=== PATIENT | female | born 1980 | race Caucasian/White ===

== ENCOUNTER 2016-10-15 05:44 | Emergency (ER) | payer MEDICAID ==
[~2016-10-15] VITALS: Ht 170.2 cm; Wt 59.0 kg
[~2016-10-15 05:44] MED LIST: AMOXIL875 MG PO; BACTRIM DS 8001 TA1 PO; BACTRIM DS 8001 TAB PO; BENADRYL25 M3 PO; CIPRO 500MG TA500 MG PO; CIPROFLOXACIN500 MG PO; CLINDAMYCIN HC150 MG PO; FLAGYL 500MG.500 MG PO; IBU600 MG PO; KEFLEX 500MG.500 MG PO; LORTAB 5/500 501 TAB PO; MOTRIN 400MG.400 MG PO; NOMEDS; NOMEDS XX; NORCO 325 MG-51 TAB PO; PERCOCET 10 MG1 EACH PO; PERCOCET 5/3251 EACH PO; PHENERGAN 25MG.25 M1 PO; TORADOL10 M2 PO; VOLTAREN75 MG PO
[2016-10-15] MEDS ORDERED: IBUPROFEN 600M600 MG PO (06:03)
[2016-10-15 06:13] LABS: URINE BILIRUBIN - DIPSTICK NEGATIVE (NEG); URINE BLOOD NEGATIVE (NEG)
[2016-10-15 06:17] LABS: URINE SQUAMOUS CELLS OCC #/hpf (0-5)
[2016-10-15 06:21] LABS: LYMPH # 1.4 K/mm3 (0.7-4.5); LYMPH % 11.5 % (10-50.0)
[2016-10-15 06:22] LABS: HEMOGLOBIN 8.2 g/dL (12.2-16.2)
--- NOTE | 2016-10-15 07:33 | Emergency Room Report ---
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 Y Clinical Suspician of Infection? Y Mental Status: 1 - Regular (Normal Baseline) Sepsis Risk:Possible Sepsis Risk Have you (or family members/close friends) recently traveled outside the [place]? N If Yes, where/when: Have you had exposure to infectious disease within the past month? N TB? Other? Specify: Source patient, RN notes reviewed, family, old records Exam Limitations no limitations Comment pt with progressive lt flank pain with assoc fever and dec po intake - pt had been at but eloped on the 10/12/16 - she admits to iv drug use - Cardiac Chest Pain Chest pain indicative of cardiac No Timing/Duration this evening Severity moderate ALLERGIES Coded Allergies: ciprofloxacin (From [facility]) (I-[facility] 10/15/16) erythromycin base ([facility] 10/15/[facility]) Home Medications Reported Medications IBUPROFEN MICRONIZED (IBUPROFEN 600MG) 600 MG PO Q8HP PRN FEVER History Medical History General CAD? No Angina: No UT: No Hypertension? No Hyperlipidemia? No CHF? No DVT? No PE? No COPD? No Asthma? No Anemia? Yes GERD? No Gastric ulcers? No GI Bleed? No Hernia? No Thyroid Problems? Yes Hypothyroidism? No CVA? No Seizures? No Diabetes? No Insulin Dependent: No Insulin Pump: No Home FSBS? No Renal Insuffiency? No End Stage Renal Disease? No UTI? No Stones? No BPH? No GB Disease: No Nephritic Syndrome? No Asplenia? No Hepatitis? No Sickle Cell Disease? No Arthritis? No Migraines? No Cataracts? No Glaucoma? No MRSA? No HIV? No TB? No Anxiety? No Depression? No Cancer? No More? 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 Respiratory denies cough, denies shortness of breath, denies wheezing Cardiovascular denies chest pain, denies palpitations, denies syncope Gastrointestinal see HPI, abdominal pain, nausea, denies vomiting Genitourinary denies: dysuria, frequency, hesitancy, hematuria. Musculoskeletal see HPI, back pain, denies joint pain, denies joint swelling, denies neck pain Skin denies rash Psychiatric/Neurological denies headache, denies seizure Physical Exam Vital Signs Vital Signs Date Time Temp Pulse Resp B/P Pulse O2 O2 Flow FiO2 Ox Delivery Rate 10/15 0753 98.5 74 18 107/67 98 03/ 0748 74 18 107/67 94 / 0553 99.2 94 22 119/68 98 - WBC >12,000 or <4,000 or 10% bands? 2 or more SIRS Criteria Met? B/P:107/67 MAP:85 Creatinine >2.0? UA output<0.5ml/kg/hr for 2 hrs? Platelet count >100,000? Lactate >2.0mmol/1? INR >1.2 or PTT > than 60 sec? Evidence of Organ Dysfunction? Provider documented clinical suspician of infection? Y Sepsis Criteria Count: 2 Sepsis Risk: Possible Sepsis Risk General Appearance no apparent distress Eye Exam - bilateral eye PERRL, bilateral eye EOMI Ear, Nose, Throat normal ENT inspection Neck supple Respiratory Status No: respiratory distress. Lung Sounds left: decreased breath sounds. 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 No Results/Orders Laboratory Tests 10/15/16 0605: Sodium 134 L, Potassium 3.1 L, Chloride 99, Carbon Dioxide 28, BUN 9, Creatinine 0.5 L, Estimated Creat Clear 145, Estimated GFR (MDRD) 140, Glucose 98, Calcium 7.6 L, Total Bilirubin 0.3, AST 23, ALT 23, Alkaline Phosphatase 87 , Total Protein 6.5, Albumin 2.4 L, Globulin 4.1 H, Albumin/Globulin Ratio 0.6 L, Amylase 17 L, Lipase 43 L, WBC 11.9 H, RBC 3.61 L, Hgb 8.2 L, Hct 26.3 L, MCV 72.6 L, RDW 13.9, Plt Count 425 H, MPV 5.4 L, Gran % 84.2 H, Gran # 10.0 H, Lymphocytes % 11.5, Monocytes % 3.9, Eosinophils % 0.4, Basophils % 0.1 , Lymphocytes # 1.4, Monocytes # 0.5, Eosinophils # 0.1, Basophils # 0.0, PUBS MCHC 31.3 L, MCH 22.8 L, Urine Color YELLOW, Urine Appearance CLEAR, Urine pH 6.5, Ur Specific Bowman 1.020, Urine Protein TRACE H, Urine Ketones NEGATIVE, Urine Blood NEGATIVE, Urine Nitrate NEGATIVE, Urine Bilirubin NEGATIVE, Urine Urobilinogen >=8.0 H, Ur Leukocyte Esterase TRACE H, Urine WBC 3-5, Ur Squamous Epith Cells OCC, Amorphous Sediment TRACE, Urine Mucus 1+, Urine Glucose NEGATIVE 10/15/16 0550: Opiates Screen POSITIVE H, Urine Methadone Screen NEGATIVE, Barbiturates NEGATIVE, Phencyclidine Screen NEGATIVE, Amphetamines Screen NEGATIVE, Benzodiazepines Screen NEGATIVE, Cocaine Screen POSITIVE H, Marijuana (THC) Screen NEGATIVE 10/15/16 0505: ESR Pending Current Medication Orders Sig/Mariano Start time Last Medication Dose Route Stop Time Status Admin Sodium Chloride 10 ML PRN PRN 10/15 0615 AC 10/15 IV 10/16 0604 0613 Sodium Chloride 1,000 ML .Q1H1M 10/15 0615 DC 10/15 IV 10/15 0715 0613 Sodium Chloride 10 ML PRN PRN 10/15 0615 AC IV 10/16 06 Sodium Chloride 1,000 ML .STK-MED ONE 10/15 0607 DC IV Orders Procedure Date/time Status DIET-NOTHING BY MOUTH 10/15 B Active SED RATE 10/15 07 Active DRUG ABUSE SCREEN (TRIAGE) 10/15 0733 Complete C-REACTIVE PROTEIN 10/[address] ABD & PELVIS W/O CONTRAST 10/[address] ABD/PELVIS REQ 10/15 06 Complete IV SALINE LOCK 10/15 0605 Active URINALYSIS/COMPLETE 10/15 06 Complete URINE 10/15 06 Complete LIPASE 10/15 0605 Complete CBC WITH AUTO DIFF 10/15 06 Complete CHEM 12 PROFILE 10/15 0605 Complete AMYLASE 10/15 0605 Complete XRAY/CT/US XRAY/CT/US CT abdomen, pelvis CT interpretation by discussed w/radiologist Time results known: 0754 CT Results abnormal (see report) Departure Departure Time of Disposition 0754 Disposition DC/XFER from ER to [facility]. Hosp Clinical Impression Primary Impression: Renal mass, left Secondary Impressions: Anemia Qualifiers: Anemia type: unspecified type Qualified Code: D64.9 - Anemia, unspecified IV drug user Condition STABLE Referrals Carlos Driver (Family) discussed with dr carmita DEJESUS Critical Care Critical Care No at 0756
[2016-10-15 07:48] LABS: AMPHETAMINES/METAMPHETAMINES NEGATIVE ng/mL (<1000)
[2016-10-15 07:53] VITALS: BP 107/67
--- NOTE | 2016-10-15 10:23 | RADIOLOGY REPORT PS360 ---
CT ABD PELVIS W/O CONTRAST COMPARISON: CT scan abdomen pelvis 07/02/2013 HISTORY: Abdominal pain especially left lower quadrant pain TECHNIQUE: Multiple axial scans obtained from the hemidiaphragms the pelvic floor and were performed without IV or oral contrast. Sagittal coronal reformats were evaluated as well. FINDINGS: Scans through the lower chest show small lesion with central cavitation left lower lobe lateral basilar segment subpleural location. Possibly described as a resolving small pulmonary abscess in this patient who recently had an abscess on her arm drained couple of weeks ago. There are 1 and possibly two 3 mm subpleural noncalcified nodules posterior basilar segment left lower lobe. The liver stomach and pancreas appear grossly normal. Stomach is somewhat distended with ingested food particles and the gallbladder is markedly contracted but shows no obvious stones. The spleen is normal. The adrenal glands are normal. The right kidney is normal size, there is a slightly hypodense round mass arising from the lower pole the left kidney measuring possibly 4.9 x 5.8 cm and this likely is a cortical cyst. Recommend follow-up ultrasound of the kidneys for better evaluation. This was not seen on the previous CT scan abdomen pelvis June 2013 small bowel appears normal. I do not definite identify the appendix but there are no pericecal inflammatory changes. There is a moderately large amount stool throughout the entire colon. The uterus is normal size, there is a small hypodense cystic-appearing lesion in the right adnexa likely an ovarian cyst measuring 2.6 cm in diameter. The urinary bladder is decompressed but otherwise appears normal. There is no free fluid in the pelvis. IMPRESSION: 1. 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 2. Probable small right ovarian cyst. 3. Curious small cavitary lesion left lower lobe and consider follow-up CT scan the chest in 4-5 weeks assuming the patient has been on antibiotics for the abscess in her forearm. I basically agree with the [facility] report.
== END 2016-10-15 08:36 | disposition short-term general hospital (02) ==
LOC: ER 05:44
PROVIDERS: Emergency Medicine
DX: N28.89 Other specified disorders of kidney and ureter (principal); D64.9 Anemia, unspecified